=== PATIENT | male | born 1985 | race Caucasian/White ===

== ENCOUNTER 2022-01-17 19:36 | Emergency (ER) | payer OTHER ==
[2022-01-17] MEDS ORDERED: Ciprofloxacin 500 MG TAB ONE (20:15)
[2022-01-17] MEDS ORDERED: Boostrix 0.5 ML (Tdap) VIAL (>/=7 yrs of age) ONE (20:15)
[2022-01-17] MEDS ORDERED: Cephalexin 250 MG CAP ONE (20:15)
== END 2022-01-17 20:25 | disposition home or self-care (01) ==
LOC: BURERS 19:36
DX: S91.332A Puncture wound without foreign body, left foot, initial encounter (principal); I10 Essential (primary) hypertension; X58.XXXA Exposure to other specified factors, initial encounter
CPT/HCPCS: 90471; 90715

== ENCOUNTER 2023-03-04 10:44 | Emergency (ER) | payer OTHER ==
[2023-03-04 11:12] LABS: #Basophils 0.1 thou/uL (0.0-0.2); #Eosinphils 0.1 thou/uL (0.0-0.7); #Lymphocytes 1.4 thou/uL (1.20-3.40); #Monocytes 0.5 thou/uL (0.11-0.59); #Neutrophils 4.6 thou/uL (1.40-6.50); %Basophils 1.1 % (0.0-1.0); %Eosinophils 2.2 % (0.0-10.0); %Lymphocytes 20.8 % (21.0-51.0); %Monocytes 7.2 % (0.0-10.0); %Neutrophils 68.8 % (42.0-75.0); Hematocrit 46.4 % (42.0-52.0); Hemoglobin 15.5 g/dL (14.0-18.0); Mean Corpuscular HGB CONC 33.4 g/dL (32.0-36.0); Mean Corpuscular Hemoglobin 30.4 pg (27.0-31.0); Mean Corpuscular Volume 91.1 fl (78.0-98.0); Mean Platelet Volume 8.6 fL (7.4-10.4); Platelet Count 300 10x3/uL (130-400); RBC Distribution Width 10.7 % (11.5-14.5); White Blood Cell (WBC) Count 6.7 10x3/uL (4.8-10.8)
[2023-03-04 11:26] LABS: ALT (SGPT) 36 U/L (8-55); AST (SGOT) 25 U/L (5-34); Albumin 4.4 g/dL (3.5-5.0); Alkaline Phosphatase 50 U/L (40-110); Anion Gap 16 mmol/L (10-20); BUN (Urea Nitrogen) 15 mg/dL (8.9-20.6); Bilirubin, Total 0.7 mg/dL (0.2-1.2); Calc. Creatinine Clearance 0 mL/min (70-130); Calcium 9.4 mg/dL (7.8-10.44); Carbon Dioxide 21 mmol/L (22-29); Chloride 105 mmol/L (98-107); Estimated GFR 114; Globulin 3.2 g/dL (2.4-3.5); Glucose 128 mg/dL (70-105); Potassium 3.7 mmol/L (3.5-5.1); Protein, Total 7.6 g/dL (6.0-8.3); Sodium 138 mmol/L (136-145); Troponin I 0.015 ng/mL (< 0.028)
== END 2023-03-04 11:35 | disposition home or self-care (01) ==
LOC: BURERS 10:44
DX: I10 Essential (primary) hypertension (principal); Z79.899 Other long term (current) drug therapy; Z87.891 Personal history of nicotine dependence
CPT/HCPCS: 36415; 80053; 84484; 85025; 93005